=== PATIENT | male | born 1965 | race Caucasian/White ===

== ENCOUNTER 2016-11-13 13:26 | Emergency (ER) | payer OTHER ==
[~2016-11-13] VITALS: Ht 193 cm; Wt 143.0 kg
[2016-11-13 13:30] VITALS: TEMP 37.1; Ht 193 cm; Wt 143.0 kg
[2016-11-13] MEDS ORDERED: DIPHTHERIA/TETANUS/PERTUSSIS 0.5 ML SYR/VIAL IM. ONE (13:45)
--- NOTE | 2016-11-13 14:20 | DIAGNOSTIC IMAGING REPORT ---
RIGHT HAND MIN 3 VIEWS ROUTINE CLINICAL HISTORY: High pressure injection injury. Right hand pain. COMPARISON: None. DISCUSSION: There is an old healed fifth metacarpal fracture. No acute fractures are visualized. No foreign bodies are delineated. IMPRESSION: 1. No acute fractures 2. No radiopaque foreign bodies identified Electronically signed by: Cyril Martinez M.D. 11/13/2016 2:19 PM Dictated Date/Time: 11/13/2016 2:18 PM
--- NOTE | 2016-11-13 14:30 | EMERGENCY ROOM VISIT NOTE ---
ED Visit Note First contact with patient: 13:33 CHIEF COMPLAINT: Hand injury HISTORY OF PRESENT ILLNESS: This 51-year-old male patient presented to the emergency department ambulatory after they injured the right hand at work just prior to arrival. The patient was wearing leather gloves. He was feeding a high pressure water hose when there was a hole in the house which tore through his glove and into his hand causing a high pressure injection injury of water to the right hand. The patient states he has a small white spot at the site of injection. He states the pain was severe initially but has slightly improved. There was no audible snap or crack at that time. The patient rates the pain as sharp and 7/10. The patient denies any numbness or tingling. The patient does not have injuries to the wrist. Normal range of motion of the wrist. The patient has not had an injury to this hand before. He does not believe his tetanus is up-to-date REVIEW OF SYSTEMS: A 6 system review of systems was completed with positives and pertinent negatives in the HPI. ALLERGIES: No known drug allergies MEDICATIONS: None PMH: None SOCIAL HISTORY: The patient is employed. He lives locally PHYSICAL EXAM: Vital Signs: Reviewed Nurse's notes, vital signs stable. GENERAL : This is a 51-year-old male, in no acute distress, but appears to be in pain, well-developed, well-nourished. MUSCULOSKELETAL: There is no deformity of the right hand. There is tenderness over the palmar aspect of the right hand. There is superficial skin avulsion. There is an area that is white, less than 0.5 cm in diameter to the palm of the hand at the site of injection. There is no significant edema or tenderness. There is no thenar or hypothenar eminence atrophy. Normal thumb opposition to all fingers. Timber Inspector strength 5/5. There is no laceration. Capillary refill less than 2 seconds. No tenderness of the fingers or wrist. Full range of motion of the wrist. No snuff box tenderness. Radial pulse 2+. NEURO: Alert and oriented to person, place, and time. Normal sensation to light and sharp touch. EMERGENCY DEPARTMENT COURSE: I examined the patient. An x-ray of the right hand was reviewed by myself and radiology and shows no foreign body or fracture. The patient sustained an injury to the right hand at work. He was wearing a leather glove and was injured by high-pressure water from a hose. It caused a hole through his glove. He does have a small area that is whitish in color to the palm of the hand. It is possible that the high pressure was tangental to the skin but i am certainly concerned for high-pressure injection injury to the hand. The patient was given a tetanus shot. The wound was cleaned and dressed. I discussed the case with Lee Del Rio PA-C who recommended an x-ray and follow- up Case management was able to secure an appointment with Dr. Mosqueda tomorrow at 12pm The patient declined pain medication. He should return sooner with any worsening symptoms. The patient was discharged home in good condition. RIGHT HAND MIN 3 VIEWS ROUTINE CLINICAL HISTORY: High pressure injection injury. Right hand pain. COMPARISON: None. DISCUSSION: There is an old healed fifth metacarpal fracture. No acute fractures are visualized. No foreign bodies are delineated. IMPRESSION: 1. No acute fractures 2. No radiopaque foreign bodies identified Allergies Coded Allergies: No Known Allergies (Unverified , 04/18/16) Vital Signs Date Time Temp Pulse Resp B/P (MAP) Pulse Ox O2 Delivery O2 Flow Rate FiO2 11/13/16 15:02 64 18 161/93 95 11/13/16 13:30 37.1 74 20 151/90 96 Room Air Medications Administered Medications (Trade) Dose Ordered Sig/Anel Route Start Time Stop Time Status Last Admin Dose Admin Diphtheria/ Pertussis/Tetanus Vacc (Adacel Inj) 0.5 ml ONCE ONCE IM. 11/13/16 13:45 11/13/16 13:46 DC 11/13/16 14:03 0.5 ML Departure Information Impression Primary Impression: High pressure injury of right hand Dispostion Home / Self-Care Condition GOOD Referrals No Doctor, Assigned (PCP) Noe Mosqueda MD Forms HOME CARE DOCUMENTATION FORM, IMPORTANT VISIT INFORMATION, Work Instructions Return To Work: after follow-up Additional Instructions: Off 11/13/16 and 11/14/16; then per orthopedics Patient Instructions My [facility] Additional Instructions Keep the wound clean and dry Follow-up with Dr. Vasquez tomorrow as scheduled Return to the emergency Department with any worsening symptoms
[2016-11-13 15:02] VITALS: BP 161/93; PULSE 64; O2SAT 95
== END 2016-11-13 15:00 | disposition home or self-care (01) ==
LOC: C.EDB 13:27 → C.EDD 15:00
DX: S69.81XA Other specified injuries of right wrist, hand and finger(s), initial encounter (principal); X58.XXXA Exposure to other specified factors, initial encounter